=== PATIENT | female | born 1990 | race Caucasian/White ===

== ENCOUNTER 2016-10-05 11:45 | Emergency (ER) | payer MEDICAID ==
[~2016-10-05 11:45] MED LIST: AZITHROMYCIN250 M1 PO; KEFLEX500 MG PO; LAC PO; LEVOFLOXACIN500 M1 PO; MEDDP PO; PREDNISONE20 MG PO; PRENATAL VITAMI1 TA4 PO; PROAIR HFA0.09 MG/A1 INH; PULMICORT180 MCG/Ac INH; QVAR0.04 MG/Ac IH; SING10 PO; UNABLE TO PROVIDE; VALACYCLOVIR HYD1 GM PO
[2016-10-05 12:37] LABS: CALCIUM 9.1 mg/dL (8.5-10.1); CARBON DIOXIDE 30.4 mmol/L (21-32); CHLORIDE SERUM 104 mmol/L (98-107); CREATININE SERUM 0.5 mg/dL (0.6-1.0); GFR1 > 60 mL/min; GLUCOSE SERUM 111 mg/dL (74-106); POTASSIUM SERUM 3.7 mmol/L (3.5-5.1); SODIUM SERUM 140 mmol/L (136-145)
[2016-10-05 13:53] VITALS: BP 131/75
== END 2016-10-05 13:53 | disposition home or self-care (01) ==
LOC: ED 11:45
PROVIDERS: Emergency Medicine
DX: J45.901 Unspecified asthma with (acute) exacerbation (principal); J20.9 Acute bronchitis, unspecified; R03.0 Elevated blood-pressure reading, without diagnosis of hypertension; Z79.51 Long term (current) use of inhaled steroids
CPT/HCPCS: J1100; J7613; J7644

== ENCOUNTER 2016-10-27 06:41 | Inpatient (IN) | payer MEDICAID ==
[~2016-10-27] VITALS: Ht 152.4 cm; Wt 93.0 kg
--- NOTE | 2016-10-27 06:54 | NUR ---
MSE PERFORMED BY DR CARTER
--- NOTE | 2016-10-27 06:58 | NUR ---
BREATHING TX IN PROGRESS
--- NOTE | 2016-10-27 07:01 | NUR ---
PT IN ED FOR CO SOB X6 HRS; PT HAS HX OF ASTHMA. PT STS CP UPON INSPIRATION. PT ABLE TO SPEAK IN 3-4 WORD SENTENCES. ASKED IF PT HAS AN INHALER PT RESPONDED YES BUT SHE COULD NOT USE IT BECAUSE SHE COULD NOT HAVE A DEEP BREATH IN; PT AAO4, NO FURTHER COMPLAINTS AT THIS TIME. PT 98% ON RA
--- NOTE | 2016-10-27 07:17 | NUR ---
PT ENDORSED TO NICOLE MOODY TO ASSUME CARE OF PT
--- NOTE | 2016-10-27 07:19 | NUR ---
REPORT RECEVIED FROM SHERRY RIVERA TO ASSUME CARE OF PT. UPON ENTERING THE ROOM PT IS IN A HIGH FOWLERS POSITION ON STEEL FABRICATOR. PT STS SHE IS FEELING BETTER SINCE BEING MEDICATED. PT HAS CALL LIGHT IN REACH.
--- NOTE | 2016-10-27 07:25 | NUR ---
DR CARTER AT BEDSIDE TO DISCUSS PLAN OF CARE WITH PT.
--- NOTE | 2016-10-27 08:21 | NUR ---
BREATHING TREATMENT IN PROGRESS AT BEDSIDE.
[2016-10-27 08:26] LABS: BASOPHIL % 0.6 % (0-2); PLATELET COUNT 256 x10^3mcL (130-400); RED CELL DISTRIBUTION WIDTH 13.8 % (11.5-14.5)
[2016-10-27 08:46] LABS: CALCIUM 8.3 mg/dL (8.5-10.1); CARBON DIOXIDE 26.5 mmol/L (21-32); CHLORIDE SERUM 102 mmol/L (98-107); CREATININE SERUM 0.5 mg/dL (0.6-1.0); GFR1 > 60 mL/min; GLUCOSE SERUM 190 mg/dL (74-106); SODIUM SERUM 135 mmol/L (136-145)
[2016-10-27 08:51] LABS: ALKALINE PHOSPHATASE 101 U/L (46-116); ALT/SGPT 26 U/L (14-59); AST/SGOT 11 U/L (15-37); BILIRUBIN TOTAL 0.3 mg/dL (0.20-1.00); CHOLESTEROL 147 mg/dL (<200); LIPASE 180 IU/L (73-393); TOTAL PROTEIN, SERUM 7.2 g/dL (6.4-8.2); TRIGLYCERIDES 54 mg/dL (<150)
[2016-10-27 08:52] LABS: ALBUMIN 3.3 g/dL (3.4-5.0); CHOLESTEROL/HDL RATIO 2.3; HDL CHOLESTEROL 64 mg/dL (40-60)
--- NOTE | 2016-10-27 08:57 | NUR ---
EKG IN PROGRESS AT BEDSIDE BY KP FISHER.
[2016-10-27 08:58] LABS: T3 TOTAL 1.18 ng/mL
--- NOTE | 2016-10-27 09:04 | NUR ---
PT MEDICATED WITH SOLUMEDROL 125MG SLOW IV PUSH, PT HAS NORMAL SALINE INFUSING WIDE OPEN PER MD ORDERS. PT HAS MAGNESIUM INFUSING AT 25ML/HR PER MD ORERS. PT EDUCATED ON ALL MEDICATIONS PRIOR TO ADMINISTRATION AND VERBALIZED UNDERSTANDING. PT REMAINS ON COPIER AND PRINTER FIELD TECHNICIAN WITH CALL LIGHT IN REACH.
[2016-10-27 09:16] VITALS: BP 128/71
--- NOTE | 2016-10-27 09:20 | NUR ---
REPORT GIVEN TO CINTHIA RIVERA TO ASSUME CARE OF PT.
--- NOTE | 2016-10-27 09:21 | NUR ---
SPOKE TO DR CARTER IN REGARDS TO PT PROVIDING URINE SAMPLE PRIOR TO GOING UPSTAIRS AND PER DR CARTER NO URINE PRIOR TO ADMISSION IS OK. INFORMED PT AGAIN IN REGARDS TO THE NEED FOR URINE SAMPLE.
[2016-10-27 09:56] LABS: MAGNESIUM 1.8 mg/dL (1.8-2.4); PHOSPHOROUS 3.2 mg/dL (2.5-4.9)
--- NOTE | 2016-10-27 10:00 | NUR ---
RECEIVED PT FROM ER BY TONY. PT IS ALERT, ORIENTED X 3, BUT PRESENTED VERY DROWSY. PT NO COMPLAIN OF PAIN AND SOB. PT BREATHING ON RA, EVEN, UNLABORED. WHEEZING LUNG SOUND NOTED. IV SITE PATENT, INTACT. RESUME IVF PER ORDER.
[2016-10-27 10:04] LABS: FREE T4 1.25 ng/dL (0.76-1.46); FREE THYROXINE INDEX 3.5 ug/dL (1.4-4.5)
[2016-10-27 10:50] VITALS: BP 120/69
--- NOTE | 2016-10-27 11:30 | NUR ---
PT IS STILL VERY DROWSY BUT AROUSABLE WITH SHORT TIME ATTENTION. PT IS ONLY ABLE TO ANSWER SIMPLE QUESTIONS. WILL CONTINUE TO MONITOR.
[2016-10-27 12:47] VITALS: BP 118/69
[2016-10-27 13:00] VITALS: BP 115/74
[2016-10-27 14:26] LABS: microscopic required? YES; urine erythrocyte TRACE (NEGATIVE)
[2016-10-27 14:33] LABS: AMPHETAMINE QUAL UR POSITIVE (NEG <=1000)
--- NOTE | 2016-10-27 15:33 | NUR ---
PT IS AWAKE WITH PT'S FAMILY MEMBER AT BED SIDE. PT NO COMPLAIN OF SOB ON RA AT THIS TIME. WILL CONTINUE TO MONITOR.
[2016-10-27 18:01] VITALS: BP 105/50
--- NOTE | 2016-10-27 18:31 | NUR ---
PT IS AWAKE, ALERT, ORIENTED X 3. PT ATE DINNER WELL. PT NO COMPLAIN OF SOB, COUGH. PT BREATHING ON RA, EVEN, UNLABORED. IV SITE PATENT, INTACT. ANTIBIOTIC IS INFUSING.
--- NOTE | 2016-10-27 19:35 | NUR ---
SHIFT REASSESSMENT DONE.PATIENT ALERT AND OREINTED,FAMILY AT BEDSIDE,SUPPORTIVE OF CARE.SAMOAN,NEEDS ANTICIPATED.ROOM AIR.AMBULATORY.NS AT 100 CC/ HOUR.TELE 31 ST.SKIN INTACT.BRP.CALL LITE IN REACH.
--- NOTE | 2016-10-27 20:48 | NUR ---
PM MEDS GIVEN,SWALLOWS WELL. AT BEDSIDE,SUPPORTIVE OF CARE.
--- NOTE | 2016-10-27 21:21 | NUR ---
ATB SCHEDULE TONIGHT.
[2016-10-27 21:32] VITALS: BP 116/68
[2016-10-28 05:26] VITALS: BP 104/59
[2016-10-28 06:11] LABS: BASOPHIL % 0.2 % (0-2); PLATELET COUNT 277 x10^3mcL (130-400); RED CELL DISTRIBUTION WIDTH 14.1 % (11.5-14.5)
[2016-10-28 06:22] LABS: CALCIUM 8.5 mg/dL (8.5-10.1); CARBON DIOXIDE 24.1 mmol/L (21-32); CHLORIDE SERUM 107 mmol/L (98-107); CREATININE SERUM 0.5 mg/dL (0.6-1.0); GFR1 > 60 mL/min; GLUCOSE SERUM 121 mg/dL (74-106); PHOSPHOROUS 3.6 mg/dL (2.5-4.9); POTASSIUM SERUM 4.3 mmol/L (3.5-5.1); SODIUM SERUM 140 mmol/L (136-145)
--- NOTE | 2016-10-28 06:24 | NUR ---
I AND O MEASURED AND RECORDED,IVF INFUSING WELL.WILL ENDORSE TO [facility].CALL CANDACE IN REACH.
--- NOTE | 2016-10-28 07:00 | NUR ---
PT AWAKE AND ALERT. SKIN WARM AND DRY WITH DRY SCABS ON BUES. BREATH SOUNDS WITH EXP WHEEZES HEARD UPON AUSCULTATION ANT AND POST. 02 SAT 96% ON RA. NO RESP DISTRESS NOTED. TELE BOX #31 CHECKED ON PATIENT AND VERIFIED ON RATE EXAMINER, SR WITH HR 90/MIN. PT DENIES ANY CHEST PAIN. ABD SOFT AND OBESE WITH AUDIBLE [id number]. PT STATED VOIDING WITHOU PROBLEM. IV SITE ON LT FA, NO S/S INFILTRATION. IVF NS INFUSING WELL AT 100CC/HR. SHAHRAM WELL. CALL LIGHT WITHIN REACHED AND BED IN LOW POSITION. PT DENIES ANY PAIN AT THIS TIME.
--- NOTE | 2016-10-28 08:20 | NUR ---
DR. GALLARDO AND MEDICAL TEAM, ALONG WITH BROOKS SULTANA IN AND SAW PT. PLAN OF CARE DISCUSSED.
[2016-10-28 10:00] VITALS: BP 119/78
--- NOTE | 2016-10-28 10:42 | NUR ---
DR. BRANDON MADE AWARE OF ORDER PEPCID AND PT IS ON PROTONIX IV. ORDERED TO HOLD PEPCID FOR THIS AM AND RESUME IN AM. PT NO RESP DISTRESS NOTED. TELE DCD AND PT IS NOW A MED/SURG PT. PT DENIES ANY PAIN. CALL LIGHT WITHIN REACHED.
--- NOTE | 2016-10-28 11:15 | NUR ---
ASSUMING PATIENT CARE. REC'D RESTING IN BED, EYES CLOSED. ON RA, NO SOB NOTED. NO DISTRESS NOTED. NOT ON TELE. IV SITE WNL. CALL LIGHT WITHIN REACH, WILL CONTINUE TO MONITOR.
--- NOTE | 2016-10-28 11:17 | NUR ---
ENDORSED TO ANTONINO. BEDSIDE REPORT GIVEN.
--- NOTE | 2016-10-28 12:02 | NUR ---
DUE MEDS GIVEN, PT TOLERATED WELL. WILL CONTINUE TO MONITOR.
--- NOTE | 2016-10-28 13:50 | NUR ---
PT RESTING IN BED, EYES CLOSED, NO DISTRESS NOTED. WILL CONTINUE TO MONITOR.
[2016-10-28 14:00] VITALS: BP 116/73
--- NOTE | 2016-10-28 14:11 | NUR ---
REC'D ORDER FROM DR. ANIL FARR TO SHOWER.
--- NOTE | 2016-10-28 19:42 | NUR ---
SHIFT REASSESSMENT DONE.PATIENT ALERT AND ORIENTED,LFA IV SITE SWOLLEN,STOP AT THIS TIME.WILL RESTART.AMBULATORY.ROOM AIR.BREATHING EASY.MED SURG PATIENT.SCABS RFA NOTED.POSITIVE METH.[place],NEEDS ANTICIPATED.CALL LIGHT IN REACH.
--- NOTE | 2016-10-28 21:02 | NUR ---
PM MEDS GIVEN,SWALLOWS WELL.MAINLY [place],NEEDS ANTICIPATED.
[2016-10-28 22:00] VITALS: BP 121/77
--- NOTE | 2016-10-28 22:08 | NUR ---
UA LYTES AND URINE OSMOLALITY SENT TO LAB.
--- NOTE | 2016-10-28 22:19 | NUR ---
PT C/O IV PAIN, REMOVED IV CATHETER, CANNULA INTACT. STARTED NEW IV ON LFA, IV SITE WNL.
--- NOTE | 2016-10-29 02:04 | NUR ---
PATIENT CHECKED AT INTERVALS,SLEEPING WELL AT THIS TIME.URINE OSMOLALITY CAME BACK WNL.
[2016-10-29 04:55] VITALS: BP 107/63
--- NOTE | 2016-10-29 05:46 | NUR ---
I AND O MEASURED,JONAS INTACT,CLEAR YELLOW URINE.WET TO DRY LEFT HIP ORDERED.DECLINE ACCUCHECK USUAL.FLEET SERVICE CLERK AWARE OF THIS.
[2016-10-29 06:13] LABS: BASOPHIL % 0.3 % (0-2); PLATELET COUNT 299 x10^3mcL (130-400); RED CELL DISTRIBUTION WIDTH 13.5 % (11.5-14.5)
[2016-10-29 06:38] LABS: CALCIUM 8.6 mg/dL (8.5-10.1); CARBON DIOXIDE 24.6 mmol/L (21-32); CHLORIDE SERUM 105 mmol/L (98-107); CREATININE SERUM 0.6 mg/dL (0.6-1.0); GFR1 > 60 mL/min; GLUCOSE SERUM 206 mg/dL (74-106); POTASSIUM SERUM 4.1 mmol/L (3.5-5.1); SODIUM SERUM 137 mmol/L (136-145)
--- NOTE | 2016-10-29 07:25 | NUR ---
RECEVIED Pt. AAOX4. RESPIRATIONS EVEN AND UNLABORED. DENIES PAIN/DISCOMFORT. NO DISTRESS NOTED. IVF RUNNING TO IV AT LEFT FOREARM PATENT AND INTACT. BED LOW/LOCKED. CALL LIGHT IN REACH. WILL CONTINUE TO MONITOR.
--- NOTE | 2016-10-29 08:10 | NUR ---
MADE ROUNDS WITH DR. GALLARDO AND MEDICINE TEAM, PT. POSSIBLE DISCHARGE TODAY AND AGREED WITH PLAN OF CARE.
[2016-10-29 09:30] VITALS: BP 114/75
[2016-10-29] MEDS ORDERED: MEDDP PO (13:27)
[2016-10-29] MEDS ORDERED: CLA10 PO (13:28)
[2016-10-29 13:35] VITALS: BP 114/75
--- NOTE | 2016-10-29 14:25 | NUR ---
Pt. AAOX4. ALL RX AND DISCHARGE INSTRUCTIONS EXPLAINED TO Pt. ASSISTED BY TECHNICAL INFORMATION SPECIALIST SUSANA # [id number]. Pt. VERBALIZED UNDERSTANDING. AWAITING FOR TRANSPORTATION TO ARRIVE.
--- NOTE | 2016-10-29 15:09 | NUR ---
Pt. AAOX4. RESPIRATIONS EVEN AND UNLABORED. DENIES SOB/DYSPNEA. NO DISTRESS NOTED. DENIES PAIN/DISCOMFORT. IV AT LEFT FOREARM REMOVED WITH CATH INTACT. Pt. LEFT WITH ALL BELONGINGS.
== END 2016-10-29 15:09 | disposition home or self-care (01) | DRG 133 ==
LOC: ED 06:41 → MU 08:18 → DU 08:18 → MU 10-28 10:42
PROVIDERS: Specialist; ADMIT Family Medicine
DX: J96.01 Acute respiratory failure with hypoxia (principal); K72.01 Acute and subacute hepatic failure with coma; N17.0 Acute kidney failure with tubular necrosis; R65.11 Systemic inflammatory response syndrome (SIRS) of non-infectious origin with acute organ dysfunction; J45.901 Unspecified asthma with (acute) exacerbation; E44.1 Mild protein-calorie malnutrition; E87.1 Hypo-osmolality and hyponatremia; R73.03 Prediabetes; E66.01 Morbid (severe) obesity due to excess calories; Z68.41 Body mass index [BMI] 40.0-44.9, adult; Z91.19 Patient's noncompliance with other medical treatment and regimen
CPT/HCPCS: 36600; 82962; 83880; 84439; 94150; C9113; J0171; J2543; J2920; J2930; J3475; J7030; J7512; J7613; J7620; J7626; J7644; Q0092

== ENCOUNTER 2016-12-09 17:07 | Emergency (ER) | payer MEDICAID ==
[~2016-12-09] VITALS: Ht 152.4 cm; Wt 94.3 kg
[~2016-12-09 17:07] MED LIST changes: +CLA10 PO
[2016-12-09 18:34] VITALS: BP 129/85
== END 2016-12-09 18:34 | disposition home or self-care (01) ==
LOC: EDBD 17:07 → ED 17:07
DX: J45.901 Unspecified asthma with (acute) exacerbation (principal); R03.0 Elevated blood-pressure reading, without diagnosis of hypertension; Z79.51 Long term (current) use of inhaled steroids
CPT/HCPCS: J7512

== ENCOUNTER 2017-01-06 12:02 | Inpatient (IN) | payer MEDICAID ==
[~2017-01-06] VITALS: Ht 157.5 cm; Wt 92.1 kg
[2017-01-06 13:15] LABS: BASOPHIL % 0.6 % (0-2); PLATELET COUNT 303 x10^3mcL (130-400); RED CELL DISTRIBUTION WIDTH 13.5 % (11.5-14.5)
[2017-01-06 13:35] LABS: CALCIUM 9.2 mg/dL (8.5-10.1); CARBON DIOXIDE 29.1 mmol/L (21-32); CHLORIDE SERUM 106 mmol/L (98-107); CREATININE SERUM 0.6 mg/dL (0.6-1.0); GFR1 > 60 mL/min; GLUCOSE SERUM 97 mg/dL (74-106); POTASSIUM SERUM 3.6 mmol/L (3.5-5.1); SODIUM SERUM 142 mmol/L (136-145)
[2017-01-06 13:40] LABS: ALBUMIN 3.7 g/dL (3.4-5.0); ALKALINE PHOSPHATASE 105 U/L (46-116); ALT/SGPT 23 U/L (14-59); AST/SGOT 16 U/L (15-37); BILIRUBIN TOTAL 0.3 mg/dL (0.20-1.00); TOTAL PROTEIN, SERUM 8.2 g/dL (6.4-8.2)
[2017-01-06] MEDS ORDERED: PREDNISONE2.5 MG PO (13:55)
[2017-01-06] MEDS ORDERED: SALBUTAMOL (13:56)
[2017-01-06 15:16] VITALS: BP 121/70
[2017-01-06 15:30] LABS: MAGNESIUM 2.2 mg/dL (1.8-2.4); PHOSPHOROUS 4.9 mg/dL (2.5-4.9)
[2017-01-06 15:32] LABS: CHOLESTEROL/HDL RATIO 2.5
[2017-01-06 15:38] LABS: T3 TOTAL 1.19 ng/mL
[2017-01-06 15:46] LABS: FREE T4 1.15 ng/dL (0.76-1.46); FREE THYROXINE INDEX 3.6 ug/dL (1.4-4.5); T4(THYROXINE) 9.6 ug/dL (4.7-13.3)
[2017-01-06 16:40] VITALS: BP 119/74
[2017-01-06 21:29] VITALS: BP 101/73
[2017-01-06 22:03] LABS: microscopic required? NO
[2017-01-06 22:11] LABS: urine erythrocyte NEGATIVE (NEGATIVE)
[2017-01-06 22:22] LABS: AMPHETAMINE QUAL UR POSITIVE (NEG <=1000)
[2017-01-07 05:58] VITALS: BP 120/79
[2017-01-07 06:38] LABS: PLATELET COUNT 331 x10^3mcL (130-400); RED CELL DISTRIBUTION WIDTH 13.3 % (11.5-14.5)
[2017-01-07 06:39] LABS: CALCIUM 8.9 mg/dL (8.5-10.1); CARBON DIOXIDE 20.9 mmol/L (21-32); CHLORIDE SERUM 105 mmol/L (98-107); CREATININE SERUM 0.5 mg/dL (0.6-1.0); GFR1 > 60 mL/min; GLUCOSE SERUM 145 mg/dL (74-106); POTASSIUM SERUM 4.4 mmol/L (3.5-5.1); SODIUM SERUM 138 mmol/L (136-145)
[2017-01-07 06:57] LABS: BASOPHIL % 0 % (0-2)
[2017-01-07 09:30] VITALS: BP 123/92
[2017-01-07 13:37] VITALS: BP 123/60
[2017-01-07 16:55] VITALS: BP 125/84
[2017-01-07 22:11] VITALS: BP 126/80
[2017-01-08 08:55] LABS: CALCIUM 8.5 mg/dL (8.5-10.1); CARBON DIOXIDE 22.1 mmol/L (21-32); CHLORIDE SERUM 106 mmol/L (98-107); CREATININE SERUM 0.4 mg/dL (0.6-1.0); GFR1 > 60 mL/min; GLUCOSE SERUM 139 mg/dL (74-106); MAGNESIUM 2.3 mg/dL (1.8-2.4); PHOSPHOROUS 3.4 mg/dL (2.5-4.9); POTASSIUM SERUM 4.4 mmol/L (3.5-5.1); SODIUM SERUM 138 mmol/L (136-145)
[2017-01-08 08:57] LABS: BASOPHIL % 0.1 % (0-2); PLATELET COUNT 320 x10^3mcL (130-400); RED CELL DISTRIBUTION WIDTH 13.5 % (11.5-14.5)
[2017-01-08 10:00] VITALS: BP 114/74
[2017-01-08 13:56] VITALS: BP 112/64
[2017-01-08 14:39] VITALS: BP 112/64
== END 2017-01-08 15:32 | disposition home or self-care (01) | DRG 141 ==
LOC: ED 12:02 → DU 13:55
PROVIDERS: Emergency Medicine; ADMIT Family Medicine
DX: J45.901 Unspecified asthma with (acute) exacerbation (principal); N17.0 Acute kidney failure with tubular necrosis; J96.01 Acute respiratory failure with hypoxia; R65.11 Systemic inflammatory response syndrome (SIRS) of non-infectious origin with acute organ dysfunction; E44.1 Mild protein-calorie malnutrition; F15.10 Other stimulant abuse, uncomplicated; R73.03 Prediabetes; R00.0 Tachycardia, unspecified; E66.9 Obesity, unspecified; Z68.37 Body mass index [BMI] 37.0-37.9, adult; Z91.19 Patient's noncompliance with other medical treatment and regimen
CPT/HCPCS: 82962; 83880; 84439; 94150; J2920; J2930; J7030; J7613; J7620; J7626; J7644; Q0092

== ENCOUNTER 2017-02-18 03:41 | Emergency (ER) | payer MEDICAID ==
[~2017-02-18 03:41] MED LIST changes: +PREDNISONE2.5 MG PO; +SALBUTAMOL
[2017-02-18 05:10] VITALS: BP 127/81
== END 2017-02-18 05:10 | disposition home or self-care (01) ==
LOC: ED 03:41
DX: J45.901 Unspecified asthma with (acute) exacerbation (principal); Z79.51 Long term (current) use of inhaled steroids
CPT/HCPCS: J7512; J7613; J7644

== ENCOUNTER 2017-02-20 16:45 | Inpatient (IN) | payer MEDICAID ==
[~2017-02-20] VITALS: Ht 162.6 cm; Wt 90.4 kg
[2017-02-20 22:13] LABS: MAGNESIUM 2.6 mg/dL (1.8-2.4)
[2017-02-20 23:10] VITALS: BP 151/102
[2017-02-20 23:20] VITALS: BP 151/108
[2017-02-20 23:43] VITALS: BP 151/108
[2017-02-21] VITALS (8 sets, daily range): BP systolic 103–151; BP diastolic 62–108
[2017-02-21 03:39] LABS: UA SPECIFIC GRAVITY >=1.030 (1.005-1.035); microscopic required? YES; urine erythrocyte 2+ (NEGATIVE)
[2017-02-21 03:52] LABS: AMPHETAMINE QUAL UR POSITIVE (NEG <=1000)
[2017-02-21 10:47] LABS: BASOPHIL % 0.2 % (0-2); PLATELET COUNT 309 x10^3mcL (130-400); RED CELL DISTRIBUTION WIDTH 13.4 % (11.5-14.5)
[2017-02-21 10:55] LABS: CALCIUM 8.8 mg/dL (8.5-10.1); CARBON DIOXIDE 30.2 mmol/L (21-32); CHLORIDE SERUM 102 mmol/L (98-107); CREATININE SERUM 0.4 mg/dL (0.6-1.0); GFR1 > 60 mL/min; GLUCOSE SERUM 138 mg/dL (74-106); MAGNESIUM 2.3 mg/dL (1.8-2.4); PHOSPHOROUS 2.5 mg/dL (2.5-4.9); POTASSIUM SERUM 3.7 mmol/L (3.5-5.1); SODIUM SERUM 138 mmol/L (136-145)
[2017-02-22 05:21] VITALS: BP 107/66
[2017-02-22 06:12] LABS: BASOPHIL % 0.2 % (0-2); PLATELET COUNT 316 x10^3mcL (130-400); RED CELL DISTRIBUTION WIDTH 14.1 % (11.5-14.5)
[2017-02-22 06:37] LABS: CALCIUM 8.4 mg/dL (8.5-10.1); CARBON DIOXIDE 27.9 mmol/L (21-32); CHLORIDE SERUM 105 mmol/L (98-107); CREATININE SERUM 0.6 mg/dL (0.6-1.0); GFR1 > 60 mL/min; GLUCOSE SERUM 91 mg/dL (74-106); POTASSIUM SERUM 4.1 mmol/L (3.5-5.1); SODIUM SERUM 138 mmol/L (136-145)
[2017-02-22 11:08] VITALS: BP 104/44
[2017-02-22 14:55] VITALS: BP 114/51
[2017-02-22 17:59] VITALS: BP 109/54
[2017-02-22 21:36] VITALS: BP 113/63
[2017-02-23 05:46] VITALS: BP 114/70
[2017-02-23 06:10] LABS: BASOPHIL % 0.2 % (0-2); PLATELET COUNT 327 x10^3mcL (130-400); RED CELL DISTRIBUTION WIDTH 13.8 % (11.5-14.5)
[2017-02-23 06:41] LABS: CALCIUM 8.6 mg/dL (8.5-10.1); CARBON DIOXIDE 26.6 mmol/L (21-32); CHLORIDE SERUM 103 mmol/L (98-107); CREATININE SERUM 0.4 mg/dL (0.6-1.0); GFR1 > 60 mL/min; GLUCOSE SERUM 142 mg/dL (74-106); POTASSIUM SERUM 4.4 mmol/L (3.5-5.1); SODIUM SERUM 136 mmol/L (136-145)
[2017-02-23 08:49] VITALS: BP 113/61
[2017-02-23 12:03] VITALS: BP 105/59
[2017-02-23 16:54] VITALS: BP 113/69
[2017-02-23] MEDS ORDERED: MEDDP PO (17:27)
[2017-02-23] MEDS ORDERED: PROAIR HFA8.5 GM IH (17:30)
[2017-02-23] MEDS ORDERED: LEVAQUIN750 MG PO (17:31)
[2017-02-23] MEDS ORDERED: FLORASTOR1 CAP PO (17:32)
[2017-02-23] MEDS ORDERED: MONTELUKAST SOD10 M1 PO (17:32)
[2017-02-23 18:38] VITALS: BP 113/69
== END 2017-02-23 20:10 | disposition home or self-care (01) | DRG 141 ==
LOC: ED 16:45 → DU 20:43 → MU 20:43 → IC 22:24 → DU 02-21 16:01 → MU 02-22 15:52
PROVIDERS: Family Medicine Sports Medicine; ADMIT Family Medicine
PROC: 0BH17EZ Insertion of Endotracheal Airway into Trachea, Via Natural or Artificial Opening (ICD-10-PCS; principal; 2017-02-20)
PROC: 5A1935Z Respiratory Ventilation, Less than 24 Consecutive Hours (ICD-10-PCS; 2017-02-20)
DX: J45.902 Unspecified asthma with status asthmaticus (principal); J96.00 Acute respiratory failure, unspecified whether with hypoxia or hypercapnia; N17.0 Acute kidney failure with tubular necrosis; N39.0 Urinary tract infection, site not specified; E83.41 Hypermagnesemia; E66.9 Obesity, unspecified; Z68.33 Body mass index [BMI] 33.0-33.9, adult
CPT/HCPCS: 36600; 82962; 83880; J0171; J0330; J0696; J2543; J2704; J2920; J2930; J3475; J3490; J3535; J7030; J7512; J7613; J7626; J7644

== ENCOUNTER 2017-04-29 09:53 | Emergency (ER) | payer MEDICAID ==
[~2017-04-29] VITALS: Ht 157.5 cm; Wt 93.4 kg
[~2017-04-29 09:53] MED LIST changes: +FLORASTOR1 CAP PO; +LEVAQUIN750 MG PO; +MONTELUKAST SOD10 M1 PO; +PROAIR HFA8.5 GM IH
[2017-04-29 12:17] VITALS: BP 127/76
== END 2017-04-29 12:22 | disposition home or self-care (01) ==
LOC: ED 09:53 → EDBD 09:53 → ED 12:22
DX: J45.901 Unspecified asthma with (acute) exacerbation (principal)
CPT/HCPCS: J7512; J7613; J7644

== ENCOUNTER 2017-05-11 22:56 | Emergency (ER) | payer MEDICAID ==
[2017-05-12 02:39] VITALS: BP 110/87
== END 2017-05-12 02:39 | disposition home or self-care (01) ==
LOC: ED 22:56
DX: J45.901 Unspecified asthma with (acute) exacerbation (principal); J11.1 Influenza due to unidentified influenza virus with other respiratory manifestations
CPT/HCPCS: 87804; J7512; J7613

== ENCOUNTER 2017-10-07 12:48 | Inpatient (IN) | payer MEDICAID ==
[~2017-10-07] VITALS: Ht 162.6 cm; Wt 91.2 kg
[2017-10-07 12:54] VITALS: Ht 162.6 cm; Wt 91.2 kg
[2017-10-07 14:33] LABS: ALBUMIN 3.7 g/dL (3.4-5.0); ALKALINE PHOSPHATASE 125 U/L (46-116); ALT/SGPT 27 U/L (14-59); AMYLASE 49 U/L (25-115); AST/SGOT 23 U/L (15-37); BILIRUBIN TOTAL 0.4 mg/dL (0.20-1.00); CALCIUM 8.8 mg/dL (8.5-10.1); CARBON DIOXIDE 21.3 mmol/L (21-32); CHLORIDE SERUM 105 mmol/L (98-107); CREATININE SERUM 0.6 mg/dL (0.6-1.0); GFR1 > 60 mL/min; GLUCOSE SERUM 108 mg/dL (74-106); LIPASE 167 IU/L (73-393); POTASSIUM SERUM 3.9 mmol/L (3.5-5.1); SODIUM SERUM 138 mmol/L (136-145)
[2017-10-07 14:34] LABS: TOTAL PROTEIN, SERUM 8.3 g/dL (6.4-8.2)
[2017-10-07 14:56] LABS: microscopic required? YES; urine erythrocyte 3+ (NEGATIVE)
[2017-10-07 15:10] LABS: BASOPHIL % 0.5 % (0-2); PLATELET COUNT 256 x10^3mcL (130-400); RED CELL DISTRIBUTION WIDTH 13.2 % (11.5-14.5)
[2017-10-07 16:54] LABS: T3 TOTAL 1.08 ng/mL
[2017-10-07] MEDS ORDERED: PREDNISONE (16:56)
[2017-10-07 17:18] LABS: FREE T4 0.92 ng/dL (0.76-1.46); FREE THYROXINE INDEX 2.5 ug/dL (1.4-4.5); T4(THYROXINE) 7.3 ug/dL (4.7-13.3)
[2017-10-07 17:20] VITALS: BP 123/87
[2017-10-07 17:32] LABS: MAGNESIUM 2.1 mg/dL (1.8-2.4); PHOSPHOROUS 3.3 mg/dL (2.5-4.9)
[2017-10-07 17:33] LABS: CHOLESTEROL/HDL RATIO 2.7
[2017-10-07 18:01] VITALS: BP 123/87
[2017-10-07 20:28] VITALS: BP 106/64
[2017-10-07 21:47] LABS: AMPHETAMINE QUAL UR NONE DETECTED (NEG <=1000)
[2017-10-08 05:57] LABS: BASOPHIL % 0.5 % (0-2); PLATELET COUNT 249 x10^3mcL (130-400); RED CELL DISTRIBUTION WIDTH 12.8 % (11.5-14.5)
[2017-10-08 06:12] LABS: CHLORIDE SERUM 105 mmol/L (98-107); CREATININE SERUM 0.5 mg/dL (0.6-1.0); GFR1 > 60 mL/min; GLUCOSE SERUM 98 mg/dL (74-106); POTASSIUM SERUM 3.6 mmol/L (3.5-5.1); SODIUM SERUM 135 mmol/L (136-145)
[2017-10-08 06:13] VITALS: BP 94/56
[2017-10-08 08:31] VITALS: BP 107/61
[2017-10-08 12:10] VITALS: BP 104/62
[2017-10-08 21:00] VITALS: BP 118/68
[2017-10-09 06:49] VITALS: BP 114/68
[2017-10-09 07:11] LABS: CALCIUM 7.9 mg/dL (8.5-10.1); CARBON DIOXIDE 27.6 mmol/L (21-32); CHLORIDE SERUM 111 mmol/L (98-107); CREATININE SERUM 0.4 mg/dL (0.6-1.0); GFR1 > 60 mL/min; GLUCOSE SERUM 92 mg/dL (74-106); SODIUM SERUM 142 mmol/L (136-145)
[2017-10-09 07:15] LABS: BASOPHIL % 0.6 % (0-2); PLATELET COUNT 237 x10^3mcL (130-400); RED CELL DISTRIBUTION WIDTH 13.1 % (11.5-14.5)
[2017-10-09 08:43] VITALS: BP 109/72
[2017-10-09] MEDS ORDERED: MEDDP PO (11:00)
[2017-10-09] MEDS ORDERED: FLO4 PO (11:01)
[2017-10-09] MEDS ORDERED: TYL325 PO (11:02)
[2017-10-09 13:34] VITALS: BP 109/72
== END 2017-10-09 14:30 | disposition home or self-care (01) | DRG 465 ==
LOC: ED 12:48 → DU 16:16 → MU 16:16 → DU 17:13 → MU 10-08 16:00
PROVIDERS: Emergency Medicine; Family Medicine
DX: N13.2 Hydronephrosis with renal and ureteral calculous obstruction (principal); N17.0 Acute kidney failure with tubular necrosis; J45.909 Unspecified asthma, uncomplicated; R31.9 Hematuria, unspecified; Z53.29 Procedure and treatment not carried out because of patient's decision for other reasons; E66.9 Obesity, unspecified; Z90.49 Acquired absence of other specified parts of digestive tract; Z68.33 Body mass index [BMI] 33.0-33.9, adult; Z23 Encounter for immunization
CPT/HCPCS: 83880; 84439; 94150; J1885; J2060; J2270; J2405; J7030; J7620; J8597; Q9967

== ENCOUNTER 2017-11-04 20:45 | Emergency (ER) | payer MEDICAID ==
[~2017-11-04] VITALS: Ht 172.7 cm; Wt 97.1 kg
[~2017-11-04 20:45] MED LIST changes: +FLO4 PO; +PREDNISONE; +TYL325 PO
[2017-11-04 20:57] VITALS: Ht 172.7 cm; Wt 97.1 kg
[2017-11-05 00:59] VITALS: BP 100/64
== END 2017-11-05 00:59 | disposition home or self-care (01) ==
LOC: ED 20:45
DX: J45.909 Unspecified asthma, uncomplicated (principal); F41.9 Anxiety disorder, unspecified; Z90.49 Acquired absence of other specified parts of digestive tract
CPT/HCPCS: J1200; J1885; J2765; J7030; J7613; J7644

== ENCOUNTER 2017-11-18 18:36 | Emergency (ER) | payer MEDICAID ==
[~2017-11-18] VITALS: Ht 160 cm; Wt 99.1 kg
[2017-11-18 18:39] VITALS: Ht 160 cm; Wt 99.1 kg
[2017-11-18 21:47] LABS: BASOPHIL % 0.7 % (0-2); PLATELET COUNT 240 x10^3mcL (130-400); RED CELL DISTRIBUTION WIDTH 13.1 % (11.5-14.5)
[2017-11-18 21:52] LABS: CARBON DIOXIDE 28.3 mmol/L (21-32); CHLORIDE SERUM 103 mmol/L (98-107); CREATININE SERUM 0.6 mg/dL (0.6-1.0); GFR1 > 60 mL/min; GLUCOSE SERUM 148 mg/dL (74-106); SODIUM SERUM 135 mmol/L (136-145)
[2017-11-18 21:57] LABS: ALBUMIN 3.6 g/dL (3.4-5.0); ALKALINE PHOSPHATASE 99 U/L (46-116); ALT/SGPT 18 U/L (14-59); AST/SGOT 9 U/L (15-37); BILIRUBIN TOTAL 0.3 mg/dL (0.20-1.00); TOTAL PROTEIN, SERUM 7.6 g/dL (6.4-8.2)
[2017-11-18 22:17] LABS: MAGNESIUM 1.8 mg/dL (1.8-2.4); PHOSPHOROUS 3.4 mg/dL (2.5-4.9)
[2017-11-18 22:23] LABS: T3 TOTAL 1.22 ng/mL
[2017-11-18 22:29] LABS: FREE THYROXINE INDEX 2.6 ug/dL (1.4-4.5); T4(THYROXINE) 7.1 ug/dL (4.7-13.3)
[2017-11-18 23:35] LABS: UA SPECIFIC GRAVITY 1.015 (1.005-1.035); microscopic required? YES; urine erythrocyte 2+ (NEGATIVE)
[2017-11-18 23:47] LABS: AMPHETAMINE QUAL UR NONE DETECTED (See below)
[2017-11-19 05:11] LABS: BASOPHIL % 0.6 % (0-2); PLATELET COUNT 246 x10^3mcL (130-400); RED CELL DISTRIBUTION WIDTH 13.4 % (11.5-14.5)
[2017-11-19 05:32] LABS: CALCIUM 8.5 mg/dL (8.5-10.1); CARBON DIOXIDE 24.2 mmol/L (21-32); CHLORIDE SERUM 103 mmol/L (98-107); CREATININE SERUM 0.6 mg/dL (0.6-1.0); GFR1 > 60 mL/min; GLUCOSE SERUM 168 mg/dL (74-106); MAGNESIUM 1.8 mg/dL (1.8-2.4); PHOSPHOROUS 2.7 mg/dL (2.5-4.9); POTASSIUM SERUM 4.3 mmol/L (3.5-5.1); SODIUM SERUM 137 mmol/L (136-145)
[2017-11-19 05:35] LABS: HDL CHOLESTEROL 85 mg/dL (40-60)
[2017-11-19 05:36] LABS: CHOLESTEROL 203 mg/dL (<200); CHOLESTEROL/HDL RATIO 2.4; TRIGLYCERIDES 32 mg/dL (<150)
[2017-11-19 11:11] VITALS: BP 123/84
== END 2017-11-19 11:11 | disposition home or self-care (01) ==
LOC: ED 18:36
PROVIDERS: Emergency Medicine; Family Medicine
DX: R06.03 Acute respiratory distress (principal); J45.901 Unspecified asthma with (acute) exacerbation; Z90.49 Acquired absence of other specified parts of digestive tract
CPT/HCPCS: 83880; 84439; J2920; J7030; J7512; J7613; J7620

== ENCOUNTER 2017-12-24 21:17 | Inpatient (IN) | payer MEDICAID ==
[~2017-12-24] VITALS: Ht 160 cm; Wt 103.2 kg
[2017-12-24 21:32] VITALS: Ht 160 cm; Wt 103.2 kg
[2017-12-25 02:57] VITALS: BP 120/74
[2017-12-25 05:29] VITALS: BP 120/74
[2017-12-25 05:38] LABS: BASOPHIL % 0.2 % (0-2); PLATELET COUNT 274 x10^3mcL (130-400); RED CELL DISTRIBUTION WIDTH 12.4 % (11.5-14.5)
[2017-12-25 05:54] LABS: AMYLASE 35 U/L (25-115); CALCIUM 8.3 mg/dL (8.5-10.1); CARBON DIOXIDE 22.3 mmol/L (21-32); CHLORIDE SERUM 105 mmol/L (98-107); CHOLESTEROL 191 mg/dL (<200); CHOLESTEROL/HDL RATIO 3.1; CREATININE SERUM 0.8 mg/dL (0.6-1.0); GFR1 > 60 mL/min; GLUCOSE SERUM 214 mg/dL (74-106); HDL CHOLESTEROL 62 mg/dL (40-60); LIPASE 251 IU/L (73-393); MAGNESIUM 1.7 mg/dL (1.8-2.4); PHOSPHOROUS 2.6 mg/dL (2.5-4.9); POTASSIUM SERUM 3.6 mmol/L (3.5-5.1); SODIUM SERUM 139 mmol/L (136-145); TRIGLYCERIDES 89 mg/dL (<150)
[2017-12-25 05:59] LABS: T3 TOTAL 1.07 ng/mL
[2017-12-25 06:12] LABS: FREE T4 0.93 ng/dL (0.76-1.46); FREE THYROXINE INDEX 2.1 ug/dL (1.4-4.5); T4(THYROXINE) 6.3 ug/dL (4.7-13.3)
[2017-12-25 09:16] VITALS: BP 108/57
[2017-12-25 12:17] LABS: UA SPECIFIC GRAVITY <=1.005 (1.005-1.035); microscopic required? YES; urine erythrocyte 3+ (NEGATIVE)
[2017-12-25 12:27] VITALS: BP 126/71
[2017-12-25 12:53] LABS: AMPHETAMINE QUAL UR NONE DETECTED (See below)
[2017-12-25 17:28] VITALS: BP 127/51
[2017-12-25 21:56] VITALS: BP 109/51
[2017-12-26 05:27] VITALS: BP 120/54
[2017-12-26 07:34] LABS: CALCIUM 8.5 mg/dL (8.5-10.1); CARBON DIOXIDE 24.5 mmol/L (21-32); CHLORIDE SERUM 105 mmol/L (98-107); CREATININE SERUM 0.5 mg/dL (0.6-1.0); GFR1 > 60 mL/min; GLUCOSE SERUM 163 mg/dL (74-106); MAGNESIUM 2.2 mg/dL (1.8-2.4); PHOSPHOROUS 3.3 mg/dL (2.5-4.9); PLATELET COUNT 307 x10^3mcL (130-400); POTASSIUM SERUM 4.4 mmol/L (3.5-5.1); RED CELL DISTRIBUTION WIDTH 13.3 % (11.5-14.5); SODIUM SERUM 136 mmol/L (136-145)
[2017-12-26 07:41] LABS: BASOPHIL % 0 % (0-2)
[2017-12-26 08:47] VITALS: BP 117/81
[2017-12-26 13:04] VITALS: BP 110/59
[2017-12-26 17:22] VITALS: BP 119/78
[2017-12-26 20:49] VITALS: BP 101/56
[2017-12-27 05:12] VITALS: BP 121/71
[2017-12-27 09:29] VITALS: BP 117/68
[2017-12-27 11:15] LABS: BASOPHIL % 0.2 % (0-2); PLATELET COUNT 273 x10^3mcL (130-400); RED CELL DISTRIBUTION WIDTH 13.9 % (11.5-14.5)
[2017-12-27] MEDS ORDERED: DELTASONE20 MG PO (11:26)
[2017-12-27 11:28] LABS: CALCIUM 7.9 mg/dL (8.5-10.1); CARBON DIOXIDE 25.6 mmol/L (21-32); CHLORIDE SERUM 107 mmol/L (98-107); CREATININE SERUM 0.7 mg/dL (0.6-1.0); GFR1 > 60 mL/min; GLUCOSE SERUM 203 mg/dL (74-106); SODIUM SERUM 140 mmol/L (136-145)
[2017-12-27 13:07] VITALS: BP 117/68
== END 2017-12-27 14:15 | disposition home or self-care (01) | DRG 133 ==
LOC: ED 21:17 → DU 12-25 01:43
PROVIDERS: Family Medicine
DX: J96.01 Acute respiratory failure with hypoxia (principal); E44.0 Moderate protein-calorie malnutrition; E66.01 Morbid (severe) obesity due to excess calories; J45.901 Unspecified asthma with (acute) exacerbation; Z68.41 Body mass index [BMI] 40.0-44.9, adult; R73.03 Prediabetes; R00.0 Tachycardia, unspecified; F15.11 Other stimulant abuse, in remission; Z91.19 Patient's noncompliance with other medical treatment and regimen
CPT/HCPCS: 83880; 84439; J2920; J3475; J3535; J7030; J7512; J7613; J7620; Q0092

== ENCOUNTER 2018-01-26 19:01 | Emergency (ER) | payer MEDICAID ==
[~2018-01-26] VITALS: Ht 160 cm; Wt 103.9 kg
[~2018-01-26 19:01] MED LIST changes: +DELTASONE20 MG PO
[2018-01-26 19:05] VITALS: Ht 160 cm; Wt 103.9 kg
[2018-01-26 20:20] LABS: BASOPHIL % 1.3 % (0-2); PLATELET COUNT 321 x10^3mcL (130-400); RED CELL DISTRIBUTION WIDTH 13.1 % (11.5-14.5)
[2018-01-26 20:29] LABS: CALCIUM 9.1 mg/dL (8.5-10.1); CARBON DIOXIDE 26.6 mmol/L (21-32); CHLORIDE SERUM 102 mmol/L (98-107); CREATININE SERUM 0.7 mg/dL (0.6-1.0); GFR1 > 60 mL/min; GLUCOSE SERUM 114 mg/dL (74-106); POTASSIUM SERUM 4.2 mmol/L (3.5-5.1); SODIUM SERUM 137 mmol/L (136-145)
[2018-01-26 20:34] LABS: ALBUMIN 3.4 g/dL (3.4-5.0); ALKALINE PHOSPHATASE 126 U/L (46-116); ALT/SGPT 24 U/L (14-59); AST/SGOT 28 U/L (15-37); BILIRUBIN TOTAL 0.74 mg/dL (0.20-1.00); LIPASE 166 IU/L (73-393)
[2018-01-26 20:37] LABS: TOTAL PROTEIN, SERUM 8.4 g/dL (6.4-8.2)
[2018-01-26 21:18] LABS: UA SPECIFIC GRAVITY >=1.030 (1.005-1.035); microscopic required? YES; urine erythrocyte 1+ (NEGATIVE)
[2018-01-27 01:02] VITALS: BP 114/70
== END 2018-01-27 01:02 | disposition home or self-care (01) ==
LOC: ED 19:01
PROVIDERS: Emergency Medicine
DX: N39.0 Urinary tract infection, site not specified (principal); J45.901 Unspecified asthma with (acute) exacerbation; Z90.49 Acquired absence of other specified parts of digestive tract
CPT/HCPCS: 36415; J0696; J7512; J7613; J7644; Q9967

== ENCOUNTER 2018-02-10 20:58 | Emergency (ER) | payer MEDICAID ==
[2018-02-10 21:05] VITALS: Ht 167.6 cm
[2018-02-10 22:10] LABS: PLATELET COUNT 316 x10^3mcL (130-400)
[2018-02-10 22:12] LABS: BASOPHIL % 0 % (0-2); CALCIUM 9.3 mg/dL (8.5-10.1); CARBON DIOXIDE 24.4 mmol/L (21-32); CHLORIDE SERUM 101 mmol/L (98-107); CREATININE SERUM 0.8 mg/dL (0.6-1.0); GFR1 > 60 mL/min; GLUCOSE SERUM 181 mg/dL (74-106); SODIUM SERUM 136 mmol/L (136-145)
[2018-02-10 22:17] LABS: ALBUMIN 3.4 g/dL (3.4-5.0); ALKALINE PHOSPHATASE 104 U/L (46-116); ALT/SGPT 7 U/L (14-59); AST/SGOT 9 U/L (15-37); BILIRUBIN TOTAL 0.29 mg/dL (0.20-1.00)
[2018-02-11 00:47] VITALS: BP 138/84
== END 2018-02-11 00:47 | disposition home or self-care (01) ==
LOC: ED 20:58
PROVIDERS: Emergency Medicine
DX: J45.901 Unspecified asthma with (acute) exacerbation (principal)
CPT/HCPCS: 36415; J7512; J7613; J7644

== ENCOUNTER 2018-03-07 19:34 | Emergency (ER) | payer MEDICAID ==
[2018-03-07 19:40] VITALS: Ht 167.6 cm
[2018-03-07 20:14] LABS: BASOPHIL % 0.8 % (0-2); PLATELET COUNT 285 x10^3mcL (130-400); RED CELL DISTRIBUTION WIDTH 13.2 % (11.5-14.5)
[2018-03-07 20:24] LABS: CALCIUM 9.3 mg/dL (8.5-10.1); CARBON DIOXIDE 27.8 mmol/L (21-32); CHLORIDE SERUM 103 mmol/L (98-107); CREATININE SERUM 0.7 mg/dL (0.6-1.0); GFR1 > 60 mL/min; GLUCOSE SERUM 148 mg/dL (74-106); POTASSIUM SERUM 3.9 mmol/L (3.5-5.1); SODIUM SERUM 138 mmol/L (136-145)
[2018-03-07 20:28] LABS: ALBUMIN 3.4 g/dL (3.4-5.0); ALKALINE PHOSPHATASE 114 U/L (46-116); ALT/SGPT 30 U/L (14-59); AST/SGOT 12 U/L (15-37); BILIRUBIN TOTAL 0.29 mg/dL (0.20-1.00)
[2018-03-07 21:41] VITALS: BP 125/84
== END 2018-03-07 21:41 | disposition home or self-care (01) ==
LOC: ED 19:34
PROVIDERS: Emergency Medicine
DX: J45.901 Unspecified asthma with (acute) exacerbation (principal)
CPT/HCPCS: J2930; J7613; J7644; Q0092

== ENCOUNTER 2018-03-27 21:15 | Emergency (ER) | payer MEDICAID ==
[~2018-03-27] VITALS: Ht 162.6 cm; Wt 111.6 kg
[2018-03-27 21:24] VITALS: Ht 162.6 cm; Wt 111.6 kg
[2018-03-27 22:04] LABS: BASOPHIL % 0.4 % (0-2); PLATELET COUNT 335 x10^3mcL (130-400); RED CELL DISTRIBUTION WIDTH 13.2 % (11.5-14.5)
[2018-03-27 22:10] LABS: CALCIUM 9.3 mg/dL (8.5-10.1); CHLORIDE SERUM 102 mmol/L (98-107); CREATININE SERUM 0.6 mg/dL (0.6-1.0); GFR1 > 60 mL/min; GLUCOSE SERUM 166 mg/dL (74-106); POTASSIUM SERUM 3.3 mmol/L (3.5-5.1); SODIUM SERUM 138 mmol/L (136-145)
[2018-03-27 22:27] LABS: ALKALINE PHOSPHATASE 107 U/L (46-116); ALT/SGPT 18 U/L (14-59); AST/SGOT 6 U/L (15-37); BILIRUBIN TOTAL 0.2 mg/dL (0.20-1.00); TOTAL PROTEIN, SERUM 7.5 g/dL (6.4-8.2)
[2018-03-27 22:28] LABS: ALBUMIN 3.3 g/dL (3.4-5.0)
[2018-03-27 23:47] VITALS: BP 140/87
== END 2018-03-27 23:47 | disposition home or self-care (01) ==
LOC: ED 21:15
PROVIDERS: Emergency Medicine
DX: J45.901 Unspecified asthma with (acute) exacerbation (principal)
CPT/HCPCS: J1885; J2930; J7613

== ENCOUNTER 2018-04-03 13:29 | Inpatient (IN) | payer MEDICAID ==
[~2018-04-03] VITALS: Ht 157.5 cm; Wt 108.9 kg
[2018-04-03 13:32] VITALS: Ht 157.5 cm; Wt 108.9 kg
[2018-04-03 16:13] VITALS: BP 146/98
[2018-04-03 16:13] LABS: BASOPHIL % 1.1 % (0-2); PLATELET COUNT 297 x10^3mcL (130-400); RED CELL DISTRIBUTION WIDTH 12.9 % (11.5-14.5)
[2018-04-03 16:22] LABS: CALCIUM 9.1 mg/dL (8.5-10.1); CARBON DIOXIDE 27.1 mmol/L (21-32); CHLORIDE SERUM 105 mmol/L (98-107); CREATININE SERUM 0.6 mg/dL (0.6-1.0); GFR1 > 60 mL/min; GLUCOSE SERUM 139 mg/dL (74-106); POTASSIUM SERUM 3.8 mmol/L (3.5-5.1); SODIUM SERUM 140 mmol/L (136-145)
[2018-04-03 16:59] LABS: PHOSPHOROUS 4.1 mg/dL (2.5-4.9)
[2018-04-03 17:00] LABS: T3 TOTAL 1.33 ng/mL
[2018-04-03 17:04] LABS: CHOLESTEROL/HDL RATIO 4.5
[2018-04-03 17:25] LABS: FREE THYROXINE INDEX 2.9 ug/dL (1.4-4.5); T4(THYROXINE) 8.4 ug/dL (4.7-13.3)
[2018-04-03 17:55] VITALS: BP 120/67
[2018-04-03 18:30] VITALS: BP 130/68
[2018-04-03 21:17] VITALS: BP 114/68
[2018-04-04 03:25] LABS: microscopic required? NO
[2018-04-04 04:06] LABS: urine erythrocyte NEGATIVE (NEGATIVE)
[2018-04-04 04:13] LABS: AMPHETAMINE QUAL UR NONE DETECTED (See below)
[2018-04-04 05:14] VITALS: BP 120/71
[2018-04-04 07:41] LABS: CARBON DIOXIDE 21.9 mmol/L (21-32); CHLORIDE SERUM 106 mmol/L (98-107); CREATININE SERUM 0.5 mg/dL (0.6-1.0); GFR1 > 60 mL/min; GLUCOSE SERUM 242 mg/dL (74-106); MAGNESIUM 2.2 mg/dL (1.8-2.4); PHOSPHOROUS 2.8 mg/dL (2.5-4.9); POTASSIUM SERUM 4.1 mmol/L (3.5-5.1); SODIUM SERUM 136 mmol/L (136-145)
[2018-04-04 07:49] LABS: BASOPHIL % 0.1 % (0-2); PLATELET COUNT 290 x10^3mcL (130-400); RED CELL DISTRIBUTION WIDTH 12.8 % (11.5-14.5)
[2018-04-04 09:25] VITALS: BP 107/63
[2018-04-04 17:25] VITALS: BP 120/77
[2018-04-04 20:51] VITALS: BP 136/82
[2018-04-05 05:41] VITALS: BP 102/52
[2018-04-05 07:29] LABS: CALCIUM 8.2 mg/dL (8.5-10.1); CARBON DIOXIDE 20.5 mmol/L (21-32); CHLORIDE SERUM 108 mmol/L (98-107); CREATININE SERUM 0.5 mg/dL (0.6-1.0); GFR1 > 60 mL/min; GLUCOSE SERUM 273 mg/dL (74-106); MAGNESIUM 2.2 mg/dL (1.8-2.4); PHOSPHOROUS 3.1 mg/dL (2.5-4.9); POTASSIUM SERUM 4.4 mmol/L (3.5-5.1); SODIUM SERUM 137 mmol/L (136-145)
[2018-04-05 08:04] LABS: PLATELET COUNT 293 x10^3mcL (130-400); RED CELL DISTRIBUTION WIDTH 13.1 % (11.5-14.5)
[2018-04-05 08:57] VITALS: BP 123/65
[2018-04-05] MEDS ORDERED: PRE20 PO (12:33)
[2018-04-05] MEDS ORDERED: PREDNISONE20 MG PO (12:33)
[2018-04-05] MEDS ORDERED: PREDNISONE2.5 MG PO (12:34)
[2018-04-05] MEDS ORDERED: VENTOLIN H0.09 MG/A1 INH (12:44)
[2018-04-05 13:12] VITALS: BP 123/65
[2018-04-05 13:39] LABS: BAND NEUTROPHIL 6 % (0-10); BASOPHIL 0 % (0-2); MONOCYTE 7 % (0-7); SEGMENTED NEUTROPHILS 84 % (37-75)
[2018-04-05 13:41] LABS: PLATELET MORPHOLOGY PLATELETS NORMAL; rbc morphology (normal/abnorm) ABNORMAL (NORMAL)
== END 2018-04-05 15:09 | disposition home or self-care (01) | DRG 141 ==
LOC: ED 13:29 → MU 16:37
PROVIDERS: Emergency Medicine; Family Medicine
DX: J45.41 Moderate persistent asthma with (acute) exacerbation (principal); J96.01 Acute respiratory failure with hypoxia; E66.01 Morbid (severe) obesity due to excess calories; Z68.42 Body mass index [BMI] 45.0-49.9, adult; R65.10 Systemic inflammatory response syndrome (SIRS) of non-infectious origin without acute organ dysfunction; G47.33 Obstructive sleep apnea (adult) (pediatric); D72.829 Elevated white blood cell count, unspecified; T38.0X5A Adverse effect of glucocorticoids and synthetic analogues, initial encounter; Y92.018 Other place in single-family (private) house as the place of occurrence of the external cause
CPT/HCPCS: 83880; 84439; 90658; J2930; J3475; J7030; J7512; J7613; J7620; J7626; Q0092

== ENCOUNTER 2018-05-18 17:17 | Emergency (ER) | payer SELFPAY ==
[~2018-05-18] VITALS: Ht 157.5 cm; Wt 112.5 kg
[~2018-05-18 17:17] MED LIST changes: +PRE20 PO; +VENTOLIN H0.09 MG/A1 INH
[2018-05-18 17:45] VITALS: Ht 157.5 cm; Wt 112.5 kg
[2018-05-18 19:08] VITALS: BP 105/71
== END 2018-05-18 19:08 | disposition home or self-care (01) ==
LOC: ED 17:17
DX: J45.901 Unspecified asthma with (acute) exacerbation (principal)
CPT/HCPCS: J7613; J7644

== ENCOUNTER 2018-05-24 09:08 | Emergency (ER) | payer MEDICAID ==
[~2018-05-24] VITALS: Ht 157.5 cm; Wt 112.9 kg
[2018-05-24 09:17] VITALS: Ht 157.5 cm; Wt 112.9 kg
[2018-05-24 13:35] VITALS: BP 144/77
== END 2018-05-24 13:35 | disposition home or self-care (01) ==
LOC: ED 09:08
DX: J45.901 Unspecified asthma with (acute) exacerbation (principal)
CPT/HCPCS: J7512; J7613

== ENCOUNTER 2018-05-29 04:26 | Emergency (ER) | payer MEDICAID ==
[2018-05-29 04:32] VITALS: Ht 157.5 cm
[2018-05-29 05:33] LABS: BASOPHIL % 0.4 % (0-2); PLATELET COUNT 206 x10^3mcL (130-400)
[2018-05-29 05:51] LABS: CALCIUM 9.4 mg/dL (8.5-10.1); CHLORIDE SERUM 102 mmol/L (98-107); CREATININE SERUM 0.6 mg/dL (0.6-1.0); GFR1 > 60 mL/min; GLUCOSE SERUM 160 mg/dL (74-106); POTASSIUM SERUM 4.2 mmol/L (3.5-5.1); SODIUM SERUM 137 mmol/L (136-145)
[2018-05-29 05:56] LABS: ALBUMIN 3.4 g/dL (3.4-5.0); ALKALINE PHOSPHATASE 120 U/L (46-116); ALT/SGPT 18 U/L (14-59); AMYLASE 34 U/L (25-115); BILIRUBIN TOTAL 0.2 mg/dL (0.20-1.00); LIPASE 203 IU/L (73-393); TOTAL PROTEIN, SERUM 7.9 g/dL (6.4-8.2)
[2018-05-29 06:07] LABS: AST/SGOT 10 U/L (15-37)
[2018-05-29 06:13] LABS: microscopic required? NO
[2018-05-29 06:20] VITALS: BP 151/92
[2018-05-29 06:44] LABS: urine erythrocyte NEGATIVE (NEGATIVE)
== END 2018-05-29 06:41 | disposition home or self-care (01) ==
LOC: ED 04:26
PROVIDERS: Emergency Medicine
DX: S39.013A Strain of muscle, fascia and tendon of pelvis, initial encounter (principal); J45.909 Unspecified asthma, uncomplicated; X58.XXXA Exposure to other specified factors, initial encounter; Y93.89 Activity, other specified; Y92.89 Other specified places as the place of occurrence of the external cause; Y99.8 Other external cause status
CPT/HCPCS: 87491; 87591; J1885; Q0092

== ENCOUNTER 2018-06-09 17:43 | Emergency (ER) | payer MEDICAID ==
[~2018-06-09] VITALS: Ht 157.5 cm; Wt 117.0 kg
[2018-06-09 18:04] VITALS: Ht 157.5 cm; Wt 117.0 kg
[2018-06-09 18:56] VITALS: BP 133/83
== END 2018-06-09 18:56 | disposition home or self-care (01) ==
LOC: ED 17:43
DX: J45.909 Unspecified asthma, uncomplicated (principal); H60.92 Unspecified otitis externa, left ear
CPT/HCPCS: J7512; J7620

== ENCOUNTER 2018-06-10 22:47 | Emergency (ER) | payer MEDICAID ==
[~2018-06-10] VITALS: Ht 160 cm; Wt 113.4 kg
[2018-06-10 22:52] VITALS: Ht 160 cm; Wt 113.4 kg
[2018-06-10 23:53] VITALS: BP 145/80
== END 2018-06-10 23:53 | disposition home or self-care (01) ==
LOC: ED 22:47
DX: S93.602A Unspecified sprain of left foot, initial encounter (principal); J45.909 Unspecified asthma, uncomplicated; X50.1XXA Overexertion from prolonged static or awkward postures, initial encounter; Y93.89 Activity, other specified; Y92.89 Other specified places as the place of occurrence of the external cause; Y99.8 Other external cause status

== ENCOUNTER 2018-07-05 21:48 | Emergency (ER) | payer SELFPAY ==
[~2018-07-05] VITALS: Ht 162.6 cm; Wt 114.3 kg
[2018-07-05 22:41] VITALS: BP 104/59; Ht 162.6 cm; Wt 114.3 kg
== END 2018-07-05 23:49 | disposition home or self-care (01) ==
LOC: ED 21:48
DX: T16.2XXA Foreign body in left ear, initial encounter (principal); J45.909 Unspecified asthma, uncomplicated; Z90.49 Acquired absence of other specified parts of digestive tract; W45.8XXA Other foreign body or object entering through skin, initial encounter; Y93.89 Activity, other specified; Y92.89 Other specified places as the place of occurrence of the external cause; Y99.8 Other external cause status

== ENCOUNTER 2018-07-17 13:29 | Emergency (ER) | payer MEDICAID ==
[~2018-07-17] VITALS: Ht 165.1 cm; Wt 113.9 kg
[2018-07-17 13:32] VITALS: Ht 165.1 cm; Wt 113.9 kg
[2018-07-17 16:55] VITALS: BP 108/67
== END 2018-07-17 18:12 | disposition home or self-care (01) ==
LOC: ED 13:29
DX: J45.901 Unspecified asthma with (acute) exacerbation (principal); H61.23 Impacted cerumen, bilateral; E66.01 Morbid (severe) obesity due to excess calories; Z68.41 Body mass index [BMI] 40.0-44.9, adult
CPT/HCPCS: J2930; J7613; J7644

== ENCOUNTER 2018-10-13 23:53 | Emergency (ER) | payer MEDICAID ==
[~2018-10-13] VITALS: Ht 154.9 cm; Wt 116.6 kg
[2018-10-13 23:59] VITALS: Ht 154.9 cm; Wt 116.6 kg
[2018-10-14 01:05] VITALS: BP 126/83
== END 2018-10-14 01:05 | disposition home or self-care (01) ==
LOC: ED 23:53
DX: J02.9 Acute pharyngitis, unspecified (principal); J45.909 Unspecified asthma, uncomplicated; Z90.49 Acquired absence of other specified parts of digestive tract; Z98.890 Other specified postprocedural states; Z79.899 Other long term (current) drug therapy; R59.9 Enlarged lymph nodes, unspecified
CPT/HCPCS: J1885

== ENCOUNTER 2018-12-11 01:09 | Emergency (ER) | payer MEDICAID ==
[~2018-12-11] VITALS: Ht 160 cm; Wt 116.6 kg
[2018-12-11 01:12] VITALS: Ht 160 cm; Wt 116.6 kg
[2018-12-11 02:23] VITALS: BP 104/67
== END 2018-12-11 02:23 | disposition home or self-care (01) ==
LOC: ED 01:09
DX: J45.901 Unspecified asthma with (acute) exacerbation (principal)
CPT/HCPCS: J7512; J7613; J7644

== ENCOUNTER 2019-02-01 17:14 | Emergency (ER) | payer MEDICAID ==
[~2019-02-01] VITALS: Ht 162.6 cm; Wt 117.5 kg
[2019-02-01 17:19] VITALS: Ht 162.6 cm; Wt 117.5 kg
[2019-02-01 17:59] LABS: BASOPHIL % 0.3 % (0-2); PLATELET COUNT 339 x10^3mcL (130-400); RED CELL DISTRIBUTION WIDTH 13.5 % (11.5-14.5)
[2019-02-01 18:10] LABS: CALCIUM 8.5 mg/dL (8.5-10.1); CHLORIDE SERUM 103 mmol/L (98-107); CREATININE SERUM 0.8 mg/dL (0.6-1.0); GFR1 > 60 mL/min; GLUCOSE SERUM 115 mg/dL (74-106); POTASSIUM SERUM 3.7 mmol/L (3.5-5.1); SODIUM SERUM 139 mmol/L (136-145)
[2019-02-01 18:15] LABS: ALKALINE PHOSPHATASE 115 U/L (46-116); ALT/SGPT 24 U/L (14-59); AST/SGOT 11 U/L (15-37); BILIRUBIN TOTAL 0.3 mg/dL (0.20-1.00); LIPASE 203 IU/L (73-393); TOTAL PROTEIN, SERUM 7.9 g/dL (6.4-8.2)
[2019-02-01 19:23] VITALS: BP 116/74
== END 2019-02-01 19:23 | disposition home or self-care (01) ==
LOC: ED 17:14
DX: N39.0 Urinary tract infection, site not specified (principal); J45.909 Unspecified asthma, uncomplicated; Z90.49 Acquired absence of other specified parts of digestive tract; Z98.890 Other specified postprocedural states
CPT/HCPCS: 36415

== ENCOUNTER 2019-04-07 13:36 | Emergency (ER) | payer MEDICAID ==
[~2019-04-07] VITALS: Ht 160 cm; Wt 116.1 kg
[2019-04-07 13:50] VITALS: Ht 160 cm; Wt 116.1 kg
[2019-04-07 16:47] LABS: BASOPHIL % 1.1 % (0-2); PLATELET COUNT 286 x10^3mcL (130-400); RED CELL DISTRIBUTION WIDTH 13.9 % (11.5-14.5)
[2019-04-07 17:42] LABS: CALCIUM 8.8 mg/dL (8.5-10.1); CARBON DIOXIDE 26.3 mmol/L (21-32); CHLORIDE SERUM 104 mmol/L (98-107); CREATININE SERUM 0.5 mg/dL (0.6-1.0); GFR1 > 60 mL/min; GLUCOSE SERUM 109 mg/dL (74-106); POTASSIUM SERUM 3.7 mmol/L (3.5-5.1); SODIUM SERUM 139 mmol/L (136-145)
[2019-04-07 17:47] LABS: ALBUMIN 3.2 g/dL (3.4-5.0); ALKALINE PHOSPHATASE 93 U/L (46-116); ALT/SGPT 27 U/L (14-59); AST/SGOT 13 U/L (15-37); TOTAL PROTEIN, SERUM 7.9 g/dL (6.4-8.2)
[2019-04-07 19:42] VITALS: BP 105/55
== END 2019-04-07 19:42 | disposition home or self-care (01) ==
LOC: ED 13:36
PROVIDERS: Emergency Medicine
DX: O23.41 Unspecified infection of urinary tract in pregnancy, first trimester (principal); O24.911 Unspecified diabetes mellitus in pregnancy, first trimester; O99.511 Diseases of the respiratory system complicating pregnancy, first trimester; Z90.49 Acquired absence of other specified parts of digestive tract; Z98.890 Other specified postprocedural states; Z3A.01 Less than 8 weeks gestation of pregnancy
CPT/HCPCS: 87804; J2405

== ENCOUNTER 2019-04-23 15:56 | Emergency (ER) | payer MEDICAID ==
[~2019-04-23] VITALS: Ht 160 cm; Wt 116.6 kg
[2019-04-23 16:03] VITALS: Ht 160 cm; Wt 116.6 kg
[2019-04-23 17:15] VITALS: BP 146/82
== END 2019-04-23 18:20 | disposition home or self-care (01) ==
LOC: ED 15:56
DX: O99.511 Diseases of the respiratory system complicating pregnancy, first trimester (principal); E11.9 Type 2 diabetes mellitus without complications; J45.909 Unspecified asthma, uncomplicated; Z3A.12 12 weeks gestation of pregnancy; Z90.49 Acquired absence of other specified parts of digestive tract
CPT/HCPCS: 82962; J7613; J7644

== ENCOUNTER 2019-04-29 16:31 | Emergency (ER) | payer MEDICAID ==
[~2019-04-29] VITALS: Ht 160 cm; Wt 114.8 kg
[2019-04-29 16:36] VITALS: BP 125/81; Ht 160 cm; Wt 114.8 kg
== END 2019-04-29 19:01 | disposition home or self-care (01) ==
LOC: ED 16:31
DX: J45.901 Unspecified asthma with (acute) exacerbation (principal); E11.9 Type 2 diabetes mellitus without complications; Z87.19 Personal history of other diseases of the digestive system
CPT/HCPCS: J7613

== ENCOUNTER 2019-04-30 09:47 | Emergency (ER) | payer MEDICAID ==
[~2019-04-30] VITALS: Ht 160 cm; Wt 114.8 kg
[2019-04-30 09:52] VITALS: Ht 160 cm; Wt 114.8 kg
[2019-04-30 15:54] VITALS: BP 114/52
== END 2019-04-30 16:54 | disposition home or self-care (01) ==
LOC: ED 09:47
DX: O99.511 Diseases of the respiratory system complicating pregnancy, first trimester (principal); R06.03 Acute respiratory distress; O24.911 Unspecified diabetes mellitus in pregnancy, first trimester; Z90.49 Acquired absence of other specified parts of digestive tract; Z3A.01 Less than 8 weeks gestation of pregnancy; Z98.890 Other specified postprocedural states
CPT/HCPCS: J2930; J7030; J7613; J7620

== ENCOUNTER 2019-05-27 19:09 | Emergency (ER) | payer MEDICAID ==
[~2019-05-27] VITALS: Ht 160 cm; Wt 111.1 kg
[2019-05-27 19:11] VITALS: Ht 160 cm; Wt 111.1 kg
[2019-05-27 19:44] LABS: microscopic required? NO
[2019-05-27 19:51] LABS: UA SPECIFIC GRAVITY <=1.005 (1.005-1.035); urine erythrocyte NEGATIVE (NEGATIVE)
[2019-05-28 00:10] VITALS: BP 126/70
== END 2019-05-28 00:10 | disposition home or self-care (01) ==
LOC: ED 19:09
DX: O99.512 Diseases of the respiratory system complicating pregnancy, second trimester (principal); O24.912 Unspecified diabetes mellitus in pregnancy, second trimester; B34.9 Viral infection, unspecified; J45.909 Unspecified asthma, uncomplicated; J10.1 Influenza due to other identified influenza virus with other respiratory manifestations; R51 Headache; Z90.49 Acquired absence of other specified parts of digestive tract; Z3A.15 15 weeks gestation of pregnancy
CPT/HCPCS: 87804; J1200; J2765; J7030

== ENCOUNTER 2019-06-23 18:40 | Emergency (ER) | payer MEDICAID ==
[~2019-06-23] VITALS: Ht 160 cm; Wt 110.2 kg
[2019-06-23 18:46] VITALS: Ht 160 cm; Wt 110.2 kg
[2019-06-23 19:49] VITALS: BP 125/79
== END 2019-06-23 19:49 | disposition home or self-care (01) ==
LOC: ED 18:40
DX: O23.42 Unspecified infection of urinary tract in pregnancy, second trimester (principal); O99.612 Diseases of the digestive system complicating pregnancy, second trimester; K59.00 Constipation, unspecified; Z3A.20 20 weeks gestation of pregnancy
CPT/HCPCS: J0696

== ENCOUNTER 2019-07-07 04:08 | Emergency (ER) | payer MEDICAID ==
[~2019-07-07] VITALS: Ht 160 cm; Wt 109.8 kg
[2019-07-07 04:18] VITALS: Ht 160 cm; Wt 109.8 kg
[2019-07-07 06:36] VITALS: BP 120/75
== END 2019-07-07 06:36 | disposition home or self-care (01) ==
LOC: ED 04:08
DX: J45.901 Unspecified asthma with (acute) exacerbation (principal); Z90.49 Acquired absence of other specified parts of digestive tract; Z98.890 Other specified postprocedural states
CPT/HCPCS: J2930; J7620; Q0092

== ENCOUNTER 2019-08-14 10:08 | Emergency (ER) | payer MEDICAID ==
[~2019-08-14] VITALS: Ht 160 cm; Wt 108.4 kg
[2019-08-14 10:25] VITALS: Ht 160 cm; Wt 108.4 kg
[2019-08-14 12:37] VITALS: BP 120/78
== END 2019-08-14 12:37 | disposition home or self-care (01) ==
LOC: ED 10:08
DX: J45.901 Unspecified asthma with (acute) exacerbation (principal); E11.9 Type 2 diabetes mellitus without complications; Z90.49 Acquired absence of other specified parts of digestive tract
CPT/HCPCS: J2930; J7030; J7613; J7644

== ENCOUNTER 2020-03-27 06:29 | Emergency (ER) | payer MEDICAID ==
[~2020-03-27] VITALS: Ht 154.9 cm; Wt 101.6 kg
[2020-03-27 06:41] VITALS: Ht 154.9 cm; Wt 101.6 kg
[2020-03-27 11:37] VITALS: BP 126/82
== END 2020-03-27 11:37 | disposition home or self-care (01) ==
LOC: ED 06:29
DX: J45.901 Unspecified asthma with (acute) exacerbation (principal); E11.9 Type 2 diabetes mellitus without complications; E66.9 Obesity, unspecified; Z68.41 Body mass index [BMI] 40.0-44.9, adult; Z98.890 Other specified postprocedural states; Z90.49 Acquired absence of other specified parts of digestive tract
CPT/HCPCS: 36600; 82962; 94150; J2930; Q0092

== ENCOUNTER 2020-07-03 10:14 | Emergency (ER) | payer MEDICAID ==
[~2020-07-03] VITALS: Ht 160 cm; Wt 104.3 kg
[2020-07-03 10:21] VITALS: Ht 160 cm; Wt 104.3 kg
[2020-07-03 10:51] LABS: BASOPHIL % 0.7 % (0.2-1.3); PLATELET COUNT 313 x10^3mcL (179-408); RED CELL DISTRIBUTION WIDTH 13.5 % (12.3-17.7)
[2020-07-03 10:53] LABS: CALCIUM 9.8 mg/dL (8.5-10.1); CHLORIDE SERUM 104 mmol/L (98-107); CREATININE SERUM 0.6 mg/dL (0.6-1.0); GFR1 > 60 mL/min; GLUCOSE SERUM 142 mg/dL (74-106); POTASSIUM SERUM 3.4 mmol/L (3.5-5.1); SODIUM SERUM 139 mmol/L (136-145)
[2020-07-03 11:01] LABS: ALBUMIN 3.8 g/dL (3.4-5.0); ALKALINE PHOSPHATASE 112 U/L (46-116); ALT/SGPT 43 U/L (14-59); AST/SGOT 16 U/L (15-37); BILIRUBIN TOTAL 0.34 mg/dL (0.20-1.00)
[2020-07-03 11:06] LABS: TOTAL PROTEIN, SERUM 8.5 g/dL (6.4-8.2)
[2020-07-03 13:00] VITALS: BP 128/97
== END 2020-07-03 13:53 | disposition home or self-care (01) ==
LOC: ED 10:14
PROVIDERS: Emergency Medicine
DX: N12 Tubulo-interstitial nephritis, not specified as acute or chronic (principal); J45.901 Unspecified asthma with (acute) exacerbation; E11.9 Type 2 diabetes mellitus without complications; Z90.49 Acquired absence of other specified parts of digestive tract; Z98.890 Other specified postprocedural states
CPT/HCPCS: 36600; J1885